=== PATIENT | male | born 1970 | race African-American/Black ===

== ENCOUNTER 2016-10-15 03:30 | Emergency (ER) | payer MEDICAID, OTHER ==
[~2016-10-15] VITALS: Ht 177.8 cm; Wt 82.0 kg
[~2016-10-15 03:30] MED LIST: BENADRYL; HCTZ; LISINOPRIL; NEXIUM; VICODIN
[2016-10-15] MEDS ORDERED: HYDROCODONE/ACETAMINOPHEN 5/325MG TABLET PO ONE (04:15)
[2016-10-15] MEDS ORDERED: BACITRACIN ZINC OINT UDPKT TOP ONE (04:15)
[2016-10-15] MEDS ORDERED: LIDOCAINE HCL 1% 20ML VIAL (Pyxis) INJ MC ONE (05:15)
[2016-10-15 06:52] VITALS: BP 128/69
[2016-10-15 07:57] LABS: *AMPHETAMINES SCREEN URINE NEGATIVE (NEGATIVE); *BARBITURATES SCREEN URINE NEGATIVE (NEGATIVE); *BENZODIAZEPINES SCREEN URINE NEGATIVE (NEGATIVE); *COCAINE SCREEN URINE PRESUMTIVE POSITIVE (NEGATIVE); CANNABINOID URINE SCREEN NEGATIVE (NEGATIVE); ECSTASY MDMA SCREEN URINE NEGATIVE (NEGATIVE); METHADONE URINE SCREEN NEGATIVE (NEGATIVE); OPIATES URINE SCREEN NEGATIVE (NEGATIVE); PHENCYCLIDINE URINE SCREEN NEGATIVE (NEGATIVE)
== END 2016-10-15 07:12 | disposition home or self-care (01) ==
LOC: ER 04:04
DX: S62.360A Nondisplaced fracture of neck of second metacarpal bone, right hand, initial encounter for closed fracture (principal); S01.411A Laceration without foreign body of right cheek and temporomandibular area, initial encounter; S62.154A Nondisplaced fracture of hook process of hamate [unciform] bone, right wrist, initial encounter for closed fracture; S52.614A Nondisplaced fracture of right ulna styloid process, initial encounter for closed fracture; S61.216A Laceration without foreign body of right little finger without damage to nail, initial encounter; I10 Essential (primary) hypertension; Z98.890 Other specified postprocedural states; X99.1XXA Assault by knife, initial encounter; Y92.488 Other paved roadways as the place of occurrence of the external cause
CPT/HCPCS: 12011; 29125; 36415; 73130; 80305; 99285; G0482; J3490; Z7610; 12001

== ENCOUNTER 2017-03-29 15:08 | Emergency (ER) | payer MEDICAID ==
[~2017-03-29] VITALS: Ht 182.9 cm; Wt 85.0 kg
[2017-03-29] MEDS ORDERED: KETOROLAC 60MG/2ML VIAL IM ONE (23:45)
[2017-03-30 03:04] VITALS: BP 152/92
== END 2017-03-30 03:18 | disposition home or self-care (01) ==
LOC: ER 21:45
DX: M79.671 Pain in right foot (principal); F12.10 Cannabis abuse, uncomplicated; X58.XXXA Exposure to other specified factors, initial encounter; Y93.I9 Activity, other involving external motion; Y92.89 Other specified places as the place of occurrence of the external cause; Y99.8 Other external cause status
CPT/HCPCS: 73630; 96372; 99284; J1885; Z7610

== ENCOUNTER 2017-11-01 17:16 | Emergency (ER) | payer MEDICAID ==
[~2017-11-01] VITALS: Ht 180.3 cm; Wt 82.0 kg
[2017-11-01 18:18] LABS: BASOPHILS % 1.1 % (0.0-2.0); CHLORIDE 105 mEq/L (98-107); EOSINOPHILS % 1.6 % (0.0-5.0); HEMATOCRIT. 40.2 % (42.0-52.0); HEMOGLOBIN. 13.5 g/dL (14.0-18.0); LYMPHOCYTES % 52.1 % (20.0-50.0); MEAN CORPUSCULAR HEMOGLOBIN 30.9 pg (28.0-32.0); MEAN PLATELET VOLUME 7.5 fl (7.4-10.4); MONOCYTES % 9.8 % (2.0-8.0); NEUTROPHILS % 35.4 % (40.0-76.0); PLATELET 240 x1000/uL (130-400); RED BLOOD CELL COUNT 4.37 mill/uL (4.7-6.1); RED CELL DISTRIBUTION WIDTH 14.7 % (11.6-14.6)
[2017-11-01 18:21] LABS: INR 1.1; PROTHROMBIN TIME 11.1 sec (9.4-11.6)
[2017-11-01] MEDS ORDERED: IOHEXOL-300 100 ML BOTTLE ONE (18:47)
[2017-11-01] MEDS ORDERED: LIDOCAINE HCL 1% 20ML VIAL (Pyxis) INJ MC ONE (19:15)
[2017-11-01] MEDS ORDERED: ACETAMINOPHEN 325MG TABLET PO ONE (20:15)
[2017-11-01 20:57] VITALS: BP 169/99
== END 2017-11-01 20:58 | disposition home or self-care (01) ==
LOC: ER 17:25
DX: S11.91XA Laceration without foreign body of unspecified part of neck, initial encounter (principal); I10 Essential (primary) hypertension; R79.1 Abnormal coagulation profile; F12.10 Cannabis abuse, uncomplicated; Y08.89XA Assault by other specified means, initial encounter; Y93.89 Activity, other specified; Y92.89 Other specified places as the place of occurrence of the external cause; Y99.8 Other external cause status
CPT/HCPCS: 12002; 36415; 70491; 80053; 85025; 85610; 99285; J3490; Q9967

== ENCOUNTER 2017-11-16 09:18 | Emergency (ER) | payer MEDICAID ==
[~2017-11-16] VITALS: Ht 175.3 cm; Wt 85.0 kg
[2017-11-16 09:32] VITALS: BP 168/100
== END 2017-11-16 11:46 | disposition home or self-care (01) ==
LOC: ER 11:35
DX: S11.81XD Laceration without foreign body of other specified part of neck, subsequent encounter (principal); F12.10 Cannabis abuse, uncomplicated; X58.XXXD Exposure to other specified factors, subsequent encounter; Y93.89 Activity, other specified; Y99.8 Other external cause status; Y92.89 Other specified places as the place of occurrence of the external cause; Z98.890 Other specified postprocedural states
CPT/HCPCS: 99283

== ENCOUNTER 2022-01-15 14:46 | Emergency (ER) | payer MEDICAID ==
[~2022-01-15] VITALS: Ht 182.9 cm; Wt 80.0 kg
[2022-01-15 15:03] VITALS: BP 151/85
[2022-01-15] MEDS ORDERED: IBUP-2029 MT (17:13)
[2022-01-15] MEDS ORDERED: IBUPROFEN 600MG TABLET PO ONE (17:15)
== END 2022-01-15 17:36 | disposition home or self-care (01) ==
LOC: ER 14:46
DX: S20.211A Contusion of right front wall of thorax, initial encounter (principal); I10 Essential (primary) hypertension; F12.10 Cannabis abuse, uncomplicated; W22.8XXA Striking against or struck by other objects, initial encounter; Y93.89 Activity, other specified; Y92.89 Other specified places as the place of occurrence of the external cause
CPT/HCPCS: 71101; 99283